=== PATIENT | female | born 1995 | race Caucasian/White ===

== ENCOUNTER 2016-10-14 18:26 | Emergency (ER) | payer OTHER ==
[~2016-10-14] VITALS: Ht 165.1 cm; Wt 104.5 kg
[2016-10-14 18:28] VITALS: TEMP 98
[2016-10-14 19:57] LABS: BASO % 0.2 % (0.0-2.0); EOS # 0.2 (0.0-0.7); EOS % 1.5 % (0-4.0); GRAN # 7.3 (1.4-6.5); GRAN % 70.8 % (42.2-75.2); LYMPH # 1.8 (1.2-3.4); MEAN CELL VOLUME 85 fl (80.0-100.0); MEAN CORPUSCULAR HGB CONC 32 g/dl (33.0-37.0); MEAN PLATELET VOLUME 9.1 fl (7.4-10.4); MONO % 9.3 % (1.7-9.3); PLATELET COUNT 312 K/mm3 (130-400); RED BLOOD COUNT 3.99 M/mm3 (4.10-5.30); REDCELL DISTRIBUTION WIDTH-CV 13.3 % (11.5-14.5); WHITE BLOOD COUNT 10.2 K/mm3 (4.8-10.8)
[2016-10-14 20:03] LABS: HEMATOCRIT 33.9 % (37.0-47.0); HEMOGLOBIN 10.8 g/dl (12.5-16.0); MEAN CORPUSCULAR HEMOGLOBIN 27 pg (27.0-31.0)
[2016-10-14 20:09] LABS: PH 6 (5-8); SQUAMOUS EPITHELIAL 20-50 /hpf; URINE APPEARANCE Cloudy; URINE BACTERIA Rare /hpf; URINE BILIRUBIN Negative (NEGATIVE); URINE BLOOD Negative (NEGATIVE); URINE COLOR Yellow; URINE GLUCOSE Negative (NEGATIVE); URINE KETONE Negative (NEGATIVE); URINE RBC 0-2 /hpf; URINE UROBILINOGEN Negative (NEGATIVE)
[2016-10-14 20:13] LABS: ADJUSTED CALCIUM 8.6 mg/dL (8.4-10.2); ALBUMIN 4.5 gm/dL (3.5-5.0); BILIRUBIN,TOTAL 0.6 mg/dL (0.0-1.0); C-REACTIVE PROTEIN 1.5 mg/dL (0.0-0.9); POTASSIUM 3.5 mmol/L (3.4-5.0); TOTAL PROTEIN 7.4 gm/dL (6.4-8.2)
[2016-10-14 22:57] VITALS: BP 114/80; PULSE 81
[2016-10-15 01:22] LABS: CHLAMYDIA/TRACH by PCR Female NOT DETECTED; NEISSERIA GON by PCR Female NOT DETECTED
== END 2016-10-14 22:59 | disposition other institution (70) ==
LOC: COL.ER 18:26
PROVIDERS: Emergency Medicine
DX: R10.31 Right lower quadrant pain (principal); R10.32 Left lower quadrant pain; D64.9 Anemia, unspecified
CPT/HCPCS: J1885; J7030; Q9967

== ENCOUNTER 2018-07-18 16:10 | Day surgery (SDC) | payer OTHER ==
[~2018-07-18] VITALS: Ht 162.6 cm; Wt 127.6 kg
[~2018-07-18 16:10] MED LIST changes: -NORCO 325 MG-7.1 TAB PO
[2018-07-18 16:34] VITALS: BP 122/68; PULSE 87; TEMP 99
--- NOTE | 2018-07-18 19:00 | NUR ---
Patient's admission is completed. Minimal complaints of pain at this time. Call lia samson.
--- NOTE | 2018-07-18 19:15 | NUR ---
Report received from Yasmine. Patient rests in bed. Denies pain at this time. Mother and significant other in visiting and staying with patient through the night. Patient alert and oriented x 4.
[2018-07-18 19:37] VITALS: BP 112/56; PULSE 95; TEMP 97.8
--- NOTE | 2018-07-18 23:05 | NUR ---
Procedure for robotic cholecystectomy reviewed and handout given. Patient signed consent. Reports had very uncomfortable epigastric pain and face felt hot following dilaudid given for pain earlier. Subsiding at this time and pain /.
[2018-07-19] VITALS (14 sets, daily range): BP systolic 118–145; BP diastolic 45–78; PULSE 70–103; TEMP 98–98.5
--- NOTE | 2018-07-19 00:54 | NUR ---
Patient rests quietly in bed. Respirations with ease.
--- NOTE | 2018-07-19 05:00 | NUR ---
Patient awake and up to the bathroom to void. Changes into clean gown. No complaints of.
--- NOTE | 2018-07-19 11:00 | NUR ---
Patient is back from surgery. She stated she continues to have nausea. She is drowsy and falls right back to sleep while talking. She is also rating her pain at 8 on a 0-10 scale. She stated it feels like pressure to her upper abdomen. Explained that is most likely due to the gas in her abdomen from the procedure. She did not want additional pain meds at this time because she was worried about the nausea. No other changes at this time. Call light within reach.
--- NOTE | 2018-07-19 12:08 | NUR ---
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 No needs right now.
--- NOTE | 2018-07-19 14:00 | NUR ---
Patient is alert. She stated her nausea is better. She asked about her gas pain and how to relieve it. Explained the best thing to do is to walk and move around. She ordered food. [place] given for pain. Encouraged her to walk once the pills start working. No other chagnes at this time. Call light within reach.
[2018-07-19] MEDS ORDERED: NORCO 325 MG-7.1 TAB PO (17:41)
--- NOTE | 2018-07-19 19:35 | NUR ---
Patient is discharging home. Pain is well controlled with norco. She stated she is still having gas pain but it is a lot better. Denies nausea at this time. Her mother went to get her prescription for pain pills filled. Discharge instructions discussed with patient. No questions verbalized. Explained when follow up appointment is. INT discontinued. Her significant other packed up her belongings. Patient walked out with this nurse.
== END 2018-07-19 19:35 | disposition home or self-care (01) ==
LOC: SURG 16:10 → SDCO 16:10
DX: K80.10 Calculus of gallbladder with chronic cholecystitis without obstruction (principal); F17.210 Nicotine dependence, cigarettes, uncomplicated; Z88.0 Allergy status to penicillin; K21.9 Gastro-esophageal reflux disease without esophagitis
CPT/HCPCS: OP; J1170; J1885; J1956; J2270; J2405; J2550; J2704; J3010; J7120

== ENCOUNTER → 2018-07-18 | Outpatient (CLI) | payer OTHER ==
[~2018-07-18] MED LIST: NORCO 325 MG-7.1 TAB PO; ZOFRAN ODT4 MG PO
[2018-07-18 12:44] LABS: BASO % 0.2 % (0.0-2.0); EOS # 0.1 (0.0-0.7); EOS % 0.7 % (0-4.0); GRAN # 6.4 (1.4-6.5); GRAN % 79.6 % (42.2-75.2); HEMATOCRIT 37.9 % (37.0-47.0); HEMOGLOBIN 12.1 g/dl (12.5-16.0); LYMPH # 1.1 (1.2-3.4); LYMPH % 13.8 % (20.0-51.0); MEAN CELL VOLUME 84 fl (80.0-100.0); MEAN CORPUSCULAR HEMOGLOBIN 27 pg (27.0-31.0); MEAN CORPUSCULAR HGB CONC 32 g/dl (33.0-37.0); MEAN PLATELET VOLUME 9.2 fl (7.4-10.4); MONO # 0.4 (0.1-0.6); MONO % 5.2 % (1.7-9.3); PLATELET COUNT 396 K/mm3 (130-400); RED BLOOD COUNT 4.51 M/mm3 (4.10-5.30); REDCELL DISTRIBUTION WIDTH-CV 13.3 % (11.5-14.5)
[2018-07-18 13:12] LABS: ALBUMIN 4.2 gm/dL (3.5-5.0); BILIRUBIN,TOTAL 0.3 mg/dL (0.0-1.0); CALCIUM 9.2 mg/dL (8.4-10.2); CREATININE, serum 0.93 mg/dL (0.52-1.25); POTASSIUM 4.7 mmol/L (3.4-5.0); TOTAL PROTEIN 7.4 gm/dL (6.4-8.2)
== END ==
LOC: ZCOL.LAB 12:15
PROVIDERS: Family Medicine
DX: R10.11 Right upper quadrant pain (principal)

== ENCOUNTER → 2018-07-18 | Outpatient (CLI) | payer OTHER | LOC: COL.RAD 14:14 | DX: R10.11 Right upper quadrant pain (principal) ==